=== PATIENT | female | born 2000 | race Caucasian/White ===

== ENCOUNTER 2019-04-24 08:16 | Observation (INO) | payer BC, OTHER ==
[~2019-04-24] VITALS: Ht 152.4 cm; Wt 90.3 kg
[~2019-04-24 08:16] MED LIST: ACET-685 PO; ACET1TAB34 PO; FOLI1TAB21 PO; ONDA4TAB12 PO; RANI150T4 PO
[2019-04-24 08:54] LABS: BILIRUBIN,URINE NEGATIVE (NEGATIVE); UROBILINOGEN,URINE NORMAL (NEGATIVE)
[2019-04-24] MEDS ORDERED: IRON1CAP15 PO (09:00)
[2019-04-24] MEDS ORDERED: ACET500T73 PO (09:01)
[2019-04-24 09:06] LABS: APPEARANCE,URINE HAZY (CLEAR); UA COLOR YELLOW (YELLOW)
[2019-04-24] MEDS ORDERED: MORPHINE SULFATE ONE (11:09)
--- NOTE | 2019-04-24 11:10 | NUR ---
MORPHINE 5 MG IM GIVEN BY BEV GUZMAN TO RT GLUTEAL FOR ABDOMINAL CRAMPING.
[2019-04-24] MEDS ORDERED: MORPHINE SULFATE IM ONE ×2 (12:02→12:07)
--- NOTE | 2019-04-24 12:25 | NUR ---
PAIN ASSESSMENT, PAIN AT A 8 ON SCALE 1-10 MORPHINE 5MG IM ORDERED AT [address] TOREY ARGUELLES
--- NOTE | 2019-04-24 12:26 | NUR ---
PAIN ASSESSMENT AT 1215 PAIN AT A 4 ON SCALE 1-10 ABDOMINAL CRAMPING.
[2019-04-24] MEDS ORDERED: LACTATED RINGERS 1,000 ML ONE (13:36)
--- NOTE | 2019-04-24 13:52 | PRM.PN ---
Progress Note Subjective Date: Apr 24, 2019 Time: 13:38 Physician Notes: 19 y/o @ 37.2 by sono 02/28/2019 @ 29.3 presents with complaints of ctx. Late entry care at [facility] 02/24/19. LMP 09/16/2018. Irritability noted on strip with irregular ctx pattern. > 6 min. FHT Cat 1. SVE unchanged after several hours on triage. Pt uncomfortable states she is ready to have baby to nursing. Offered Morphine rest. Irritability continued with irregular ctx pattern. Pt resting comfortable. Recheck around 130pm no cervical change. CTX 6-8 min apart. IV bolus given. SVE 1-2/40/-4, unchanged since last check at [facility] noted on PN chart 04/20/19 FH 36.5 ABD- soft, diffuse tenderness, gravid Infant very active and pt responds to activity with discomfort. Complains of cramping. Continues to have irritability. 02/28/19 anatomy sono-29.3 biometrics suggest a gestational age of approximately 29 W 3 D, with an Estimated Weight (EFW) of 141 gm (0 lb, 5oz). 03/28/19 sono-34.2 biometrics suggest a gestational age of approximately 34 W 2 D, with an Estimated Weight (EFW) of 2283 gm (5 lb, 1oz). A/ 19 y/o @ 37.2 (second trimester sono dating), LMP 09/16/18 Hx PLTCS s/p failed IOL GBS + CTX Late entry to care P/ Morphine rest Monitor for labor-if progress RCS IV hydration Objective Review IO, Exams,& Results Vital Signs Date Time Temp Pulse Resp B/P (MAP) Pulse Ox O2 Delivery O2 Flow Rate FiO2 04/24/19 09:03 Room Air 03/29/19 15:18 90 Laboratory Tests Test 04/24/19 08:46 Urine Collection Type CCMS Urine Color YELLOW Urine Appearance HAZY Urine Bilirubin NEGATIVE MG/DL Urine Ketones NEGATIVE Urine Specific [place] 1.010 Urine pH 7 Urine Protein NEGATIVE Urine Urobilinogen NORMAL Urine Nitrate NEGATIVE Urine Leukocyte Esterase 100/ul 1+ Urine Blood NEGATIVE Urine RBC NONE SEEN RBC/HPF Urine WBC 10-25 WBC/HPF Urine Squamous Epithelial Cells MANY #/HPF Urine Bacteria MODERATE Urine Other MUCUS 1+ #/HPF Urine Glucose NORMAL Urine Opiates, Qualitative NEGATIVE ng/mL Urine Methadone, Qualitative NEGATIVE ng/mL Urine Amphetamine Qualitative NEGATIVE ng/mL Urine Barbiturates, Qualitative NEGATIVE ng/mL Urine Phencyclidine Screen NEGATIVE ng/mL Urine MDMA (Ecstasy), Qualitative NEGATIVE ng/mL Urine Benzodiazepines Screen NEGATIVE ng/mL Urine Cocaine Qualitative NEGATIVE ng/mL Ur Tetrahydrocannabinol (THC) Scrn NEGATIVE ng/mL Orders - MARY KATE LEMA DO External Monitoring >24w (04/24/19 08:46) Continuous [place] Monitoring (04/24/19 08:46) Sterile Vaginal Exam (04/24/19 08:46) Call Md/Non-Reasurring Fht Pat (04/24/19 08:46) Call Md/Abnorm Vag Bld (04/24/19 08:46) Call Md For Imminent Delivery (04/24/19 08:46) Call Md For Contract (04/24/19 08:46) Urine Culture (04/24/19 08:48) MARY KATE LEMA DO Apr 24, 2019 13:52
== END 2019-04-24 17:25 | disposition home or self-care (01) ==
LOC: ATP 08:16
PROVIDERS: ADMIT Obstetrics & Gynecology; ATTEND Obstetrics & Gynecology
DX: O62.9 Abnormality of forces of labor, unspecified (principal); Z3A.29 29 weeks gestation of pregnancy
CPT/HCPCS: 59025; 80307; 81000; 87086; 96372; G0378 ×9; J2270 ×3; J7120

== ENCOUNTER 2019-04-29 06:20 | Observation (INO) | payer BC, OTHER ==
[~2019-04-29] VITALS: Ht 152.4 cm; Wt 90.3 kg
[~2019-04-29 06:20] MED LIST changes: +ACET500T73 PO; +IRON1CAP15 PO
[2019-04-29 06:55] LABS: BILIRUBIN,URINE NEGATIVE (NEGATIVE); UROBILINOGEN,URINE NORMAL (NEGATIVE)
[2019-04-29 07:02] LABS: APPEARANCE,URINE CLEAR (CLEAR); UA COLOR YELLOW (YELLOW)
[2019-05-15] MEDS ORDERED: IBUP-1131 PO (09:53)
== END 2019-04-29 09:45 | disposition home or self-care (01) ==
LOC: ATP 06:20
PROVIDERS: ADMIT Obstetrics & Gynecology; ATTEND Obstetrics & Gynecology
DX: O62.9 Abnormality of forces of labor, unspecified (principal); O26.893 Other specified pregnancy related conditions, third trimester; R42 Dizziness and giddiness; Z3A.38 38 weeks gestation of pregnancy
CPT/HCPCS: 59025; 80307; 81000; 82948; 87086; G0378 ×3

== ENCOUNTER 2019-05-25 12:58 | Emergency (ER) | payer BC, OTHER ==
[~2019-05-25] VITALS: Ht 149.9 cm; Wt 82.1 kg
[~2019-05-25 12:58] MED LIST changes: +IBUP-1131 PO
[2019-05-25 13:14] VITALS: BP 116/76
--- NOTE | 2019-05-25 13:19 | ER.PDOC ---
General Chief Complaint: Vaginal Bleed Stated Complaint: FEMALE , VAG BLEEDING Time seen by MD: 13:11 Source: patient Exam Limitations: no limitations History of Present Illness Timing/Duration: this morning Severity/Quality: severe, cramping Location of Pain: abdominal pain Care: none Sexual [place] History: less than 2 months ago Contraceptive: none Associated Symptoms: abdominal pain, other (VAGINAL BLEEDING) Prior symptoms/Treatment: Similar symptoms previous, Recenly Seen, Treated by Doctor Allergies: Coded Allergies: shrimp (Verified Allergy, Mild, Anaphylaxis Shock, 05/12/19) Uncoded Allergies: AVACADO (Allergy, Mild, Anaphylaxis Shock, 05/12/19) Home Meds Active Scripts Methylergonovine Maleate (Methergine) 0.2 Mg Tablet, 0.2 MG PO Q6HR for 1 Day, #4 TABLET 0 Refills Prov:MANINDER SLOAN MD 05/25/19 Ibuprofen (IBUPROFEN) 800 Mg Tablet, 800 MG PO Q6H PRN for PAIN 4 - 6 for 15 Days, #30 TABLET 1 Refill Prov:MANINDER SLOAN MD 05/15/19 Reported Medications Acetaminophen (ACETAMINOPHEN) 500 Mg Tablet, 500 MG PO PRN, TABLET 04/24/19 Iron Fum & Ps Cmp/Fa/Vit C/B3 (INTEGRA F CAPSULE) 1 Each Capsule, 1 CAP PO BID, #30 CAP 2 Refills 04/24/19 Folic Acid (FOLIC ACID) 1 Mg Tablet, 1 MG PO DAILY24 for , TABLET 03/11/19 Past Medical History Medical History: no pertinent history Surgical History: Social History Smoking: cigarettes, less than 1 pack/day Alcohol Use: none Drug Use: none Reviewed Nursing Reviewed: Vital Signs, Abn. Noted Review of Systems All Other Systems: Reviewed and Negative Physical Exam General Appearance: No Apparent Distress, WD/WN EENT: eyes nml inspection, nml ENT inspection, pharynx nml Neck: nml inspection, non-tender Cardiovascular/Respiratory: Regular Rate, Rhythm, No M/R/G, Normal Peripheral Pulses, No JVD, Normal Breath Sounds, No Respiratory Distress Abdomen: Other (HEALING C/S SCAR) Back: nml inspection Extremities: Normal Range of Motion, Non-Tender, Normal Inspection, No Pedal Edema, No Calf Tenderness, Normal Capillary Refill Neurologic/Psychiatric: biometric screener II-XII NML as Tested, No Motor/Sensory Deficits, Alert, Normal Mood/Affect, Oriented x 3 Skin: Normal Color, Warm/Dry Lymphatic: No Adenopathy Results/Orders Results/Orders Orders - FROY PATEL MD Cbc With Auto Diff (05/25/19 13:12) Comprehensive Metabolic Panel (05/25/19 13:12) Amylase (05/25/19 13:12) Lipase (05/25/19 13:12) Helicobacter Pylori (05/25/19 13:12) PT (05/25/19 13:12) Partial Thromboplastin Time. (05/25/19 13:12) Hcg Qualitative Serum (05/25/19 13:12) Us Pelvic Non Ob (05/25/19 13:12) Us Tv-Deputy Sheriff Lieutenant (05/25/19 14:29) Vital Signs Date Time Temp Pulse Resp B/P (MAP) Pulse Ox O2 Delivery O2 Flow Rate FiO2 05/25/19 13:14 98.4 58 18 116/76 (89) 98 Room Air 98.4 05/25/19 13:10 98.4 61 18 98 Room Air 98.4 05/25/19 13:10 98.4 58 18 98.4 05/15/19 09:44 76 Laboratory Tests Test 05/25/19 13:24 White Blood Count 5.7 10^3/uL (4.5-11.0) Red Blood Count 3.96 10^6/uL (4.00-5.20) L Hemoglobin 11.1 g/dL (12.0-15.0) #L Hematocrit 34.8 % (36.0-46.0) L Mean Corpuscular Volume 87.9 fL (78-100) Mean Corpuscular Hemoglobin 28.0 pg (26-34) Mean Corpuscular Hemoglobin Concent 31.9 g/dL (33-37) L Red Cell Distribution Width 13.8 % (11.5-14.5) Platelet Count 593 10^3/uL (150-400) H Mean Platelet Volume 7.8 fL (7.8-11.0) Neutrophils (%) (Auto) 49.8 % (41.0-85.0) Lymphocytes (%) (Auto) 37.9 % (24.0-44.0) Monocytes (%) (Auto) 7.9 % (5.0-12.0) Neutrophils # (Auto) 2.9 10^3/uL (1.8-7.7) Lymphocytes # (Auto) 2.2 10^3/uL (1.0-4.8) Monocytes # (Auto) 0.5 10^3/uL (0.3-0.8) Absolute Immature Granulocyte (auto 0.01 10^3 u/L (0-2) Immature Granulocytes % 0.20 % (0.00-0.50) Eosinophils % 3.3 % (0.0-5.0) Basophils % 0.9 % (0.0-0.2) H Basophils # 0.1 10^3/uL (0.0-0.1) Eosinophil Count 0.2 10^3/uL (0.0-0.2) Prothrombin Time 10.4 SEC (9.8-11.9) Prothrombin Time INR (Non-Therap) 1.0 PTT 26.3 SEC (24.67-30.72) Sodium Level 140 mmol/L (132-145) Potassium Level 4.0 mmol/L (3.6-5.2) Chloride Level 107.0 mmol/L (96-109) Carbon Dioxide Level 22.7 mmol/L (20.0-32) Anion Gap 14.3 Blood Urea Nitrogen 13 mg/dL (7-18) Creatinine 0.66 mg/dL (0.59-1.40) Estimated GFR () 136.8 (>/=60) BUN/Creatinine Ratio 19.0 Glucose Level 79 mg/dL (70-110) Calcium Level 9.2 mg/dL (8.4-10.5) Total Bilirubin 0.3 mg/dL (0.2-1.0) Aspartate Amino Transferase (AST) 13 U/L (0-35) Alanine Aminotransferase (ALT) 14 U/L (12-78) Alkaline Phosphatase 83 U/L (50-136) Total Protein 7.1 g/dL (6.4-8.2) Albumin 3.4 g/dL (3.4-5.0) Globulin 3.7 Amylase Level 24 U/L (25-115) L Lipase 122 U/L (114-286) Serum HCG, Qualitative NEGATIVE (NEGATIVE) Helicobacter pylori Screen NEGATIVE (NEGATIVE) Consult/PCP Time Consult/PCP Called: 15:55 Consult/PCP: DR SLOAN Departure Time of Disposition: 18:00 Disposition: 01 HOME, SELF-CARE Impression: Primary Impression: Post-op bleeding Condition: Stable Referrals: GOSIA GOYAL MANAGER [employer]PERATIONS (PCP) PRIMARY CARE PROVIDER Scripts Methylergonovine Maleate (Methergine) 0.2 Mg Tablet 0.2 MG PO Q6HR for 1 Day, #4 TABLET 0 Refills Prov: MANINDER SLOAN MD 05/25/19 Duration or Time Spent with Pa: 30 M FROY PATEL MD May 25, 2019 13:19
[2019-05-25 13:32] LABS: BASOPHIL # 0.1 10^3/uL (0.0-0.1); BASOPHIL % 0.9 % (0.0-0.2); EOSINOPHIL # 0.2 10^3/uL (0.0-0.2); EOSINOPHIL % 3.3 % (0.0-5.0); HEMOGLOBIN 11.1 g/dL (12.0-15.0); LYMPHOCYTES # 2.2 10^3/uL (1.0-4.8); LYMPHOCYTES % 37.9 % (24.0-44.0); MEAN CELL HGB CONCENTRATION 31.9 g/dL (33-37); MEAN CORP VOLUME 87.9 fL (78-100); MEAN PLATELET VOLUME 7.8 fL (7.8-11.0); MONOCYTES # 0.5 10^3/uL (0.3-0.8); MONOCYTES % 7.9 % (5.0-12.0); NEUTROPHIL # 2.9 10^3/uL (1.8-7.7); NEUTROPHILS % 49.8 % (41.0-85.0); RED CELL DISTRIBUTION WIDTH 13.8 % (11.5-14.5); WHITE BLOOD CELL 5.7 10^3/uL (4.5-11.0)
[2019-05-25 13:45] LABS: CALCIUM 9.2 mg/dL (8.4-10.5); CARBON DIOXIDE 22.7 mmol/L (20.0-32)
[2019-05-25 13:48] LABS: HCG QUALITATIVE -RESTRICTLAB NEGATIVE (NEGATIVE)
[2019-05-25 14:00] VITALS: BP 140/84
--- NOTE | 2019-05-25 14:43 | DIREP ---
PROCEDURE:US PELVIS COMPLETE COMPARISON:[facility], US, US OB LIMITED, 03/28/2019, 03:53 PM. INDICATIONS:vag bleeding TECHNIQUE:Pelvic ultrasound using transabdominal technique. Endovaginal images were also obtained for better assessment of the uterus and adnexa. FINDINGS: UTERUS:Size is 11.4 x 9.5 x 8.1 cm. The myometrium is homogeneous. ENDOMETRIUM:Hypoechoic material and fluid the is noted in the endometrial cavity, measuring up to 3 cm in maximum dimension. RIGHT OVARY:Normal appearance. 2.3 x 2.3 x 2.1 cm. Arterial flow demonstrated with Doppler waveform. LEFT OVARY:Normal appearance. 2.1 x 2.5 x 1.3 cm. Arterial flow demonstrated with Doppler waveform. CUL-DE-SAC:Normal. OTHER:Negative. CONCLUSION: Retained products of conception versus hemorrhage within the endometrial cavity. Dictated by: DARWINA Physician on 05/25/2019 at 02:32 PM kriss
--- NOTE | 2019-05-25 15:17 | NUR ---
PHONE CALL DR. PATEL ON PHONE WITH DR. SLOAN FOR CONSULTATION OF PT.
[2019-05-25 16:00] VITALS: BP 120/76
[2019-05-25] MEDS ORDERED: [UNRECOGNIZED DRUG - CODE] PO (16:57)
[2019-05-25 17:00] VITALS: BP 134/78
--- NOTE | 2019-05-25 17:00 | PCM.HP ---
History of Present Illness Reason for Visit: Uterine bleeding History of Present Illness This patient is a 19yo s/p repeat delivery 05/13/19 who presents after having multiple episodes of heavy bleeding this am, saturating one pad and passing golf ball sized clots. She denies having chest pain, dizziness, rudi rtness of breath. Her cramping is mild to moderate. She has no other complaints at this time. Past Medical History Grav: 2 Para: 2 Ab: 0 Past Surgical History: Travel Hx EBOLA RISK:Travel to/contact w: No Review of Systems Constitutional: No: Fever, Chills Respiratory: No: Cough, Shortness of breath, SOB with excertion, Wheezing Cardiovascular: No: Chest Pain Gastrointestinal: Abdominal Pain; No: Nausea, Vomiting Genitourinary: No Dysuria Allergies: Coded Allergies: shrimp (Verified Allergy, Mild, Anaphylaxis Shock, 05/12/19) Uncoded Allergies: AVACADO (Allergy, Mild, Anaphylaxis Shock, 05/12/19) Scheduled Acetaminophen (Acetaminophen), 500 MG PO PRN, (Reported) Folic Acid (Folic Acid), 1 MG PO DAILY24, (Reported) Iron Fum & Ps Cmp/Fa/Vit C/B3 (Integra F Capsule), 1 CAP PO BID, (Reported) Methylergonovine Maleate (Methergine), 0.2 MG PO Q6HR Scheduled PRN Ibuprofen (Ibuprofen), 800 MG PO Q6H PRN for PAIN 4 - 6 VTE VTE Risk Total Score: 3 VTE Risk Score VTE Risk: Score 0-1 = Low Risk (Aggressive mobilization; early ambulation; no VTE prophylaxis required) Score 2: Moderate Risk (Intermittent/Pneumatic Compression Device OR Lovenox/Heparin/Coumadin) Score 3-4: High Risk (Intermittent/Pneumatic Compression Device AND Lovenox/Heparin/Coumadin) Score > or =5: Highest Risk (Intermittent/Pneumatic Compression Device AND Lovenox/Heparin/Coumadin) Antico:Hep/LMWH/Coum/Xarelto: No Mechanical device ordered: No VTE VTE Present on Admission: No Currently receiving anticoagul: No VTE Risk Total Score: 3 Exam Vital Signs Vital Signs Date Time Temp Pulse Resp B/P (MAP) Pulse Ox O2 Delivery O2 Flow Rate FiO2 05/25/19 13:14 98.4 58 18 116/76 (89) 98 Room Air 98.4 General Appearance: Alert, Oriented X3, Cooperative, No acute distress HEENT: Atraumatic, PERRLA Respiratory: Clear to auscultation, Normal air movement Cardiovascular: Normal S1, Normal S2 Abdominal: Normal bowel sounds, Other (steri-strips removed, incision is clean/dry/intact with superficial blanching erythema along <40% of length of incision at areas in contact with clothing. Tender, firm, non-fluctuant mass p resent along the right aspect of the incision deep to the incision. No discharge along the incision. No active uterine hemorrhage.) Extremities: No clubbing, No cyanosis, No edema Psych/Mental Status: Mental status NL, Mood NL Assessment/Plan Assessment/Plan Assessment/Plan 19yo with delayed hemorrhage and subcutaneous hematoma. 1) her delayed hemorrhage is likely due to placental subinvolution. I counseled Ingrid on the risks and benefits of medical management with Methergine, surgical management with dilation and curettage, or expectant management. I do not think D&C is indicated given that she does not have acute blood loss anemia and that her bleeding as stabilized at this time. She would like to proceed with oral Methergine at this time. 2) her subcutaneous hematoma does not appear to be infected. I explained that this will resolve over time, but may require surgical evacuation if it appears to be infected. I advised her to return to ER or call the clinic if she began having erythema, fevers, foul smelling drainage. She verbalized understanding. Patient will follow up in the [facility]. Problems: (1) Delayed hemorrhage ICD Code: O72.2 - Delayed and secondary hemorrhage SNOMED: 22383909 (2) Postoperative hematoma of subcutaneous tissue following non-dermatologic procedure ICD Code: L76.32 - Postprocedural hematoma of skin and subcutaneous tissue following other procedure SNOMED: 3583423, [id number], [id number] (3) Other specified abnormal uterine and vaginal bleeding ICD Code: N93.8 - Other specified abnormal uterine and vaginal bleeding SNOMED: 604268105 Patient History: No known health problems V19 CHILD NATHALIA,MANINDER Robles MD May 25, 2019 17:00
[2019-05-25 17:40] VITALS: BP 134/78
== END 2019-05-25 17:34 | disposition home or self-care (01) ==
LOC: ER 12:58
DX: N99.820 Postprocedural hemorrhage of a genitourinary system organ or structure following a genitourinary system procedure (principal); F17.210 Nicotine dependence, cigarettes, uncomplicated; Z79.1 Long term (current) use of non-steroidal anti-inflammatories (NSAID); Z79.899 Other long term (current) drug therapy; Z91.018 Allergy to other foods
CPT/HCPCS: 36415; 76830; 76856; 80053; 82150; 83690; 84703; 85025; 85610; 85730; 86677; 99285

== ENCOUNTER 2019-06-04 22:14 | Emergency (ER) | payer BC, OTHER ==
[~2019-06-04] VITALS: Ht 149.9 cm; Wt 82.1 kg
[~2019-06-04 22:14] MED LIST changes: +[UNRECOGNIZED DRUG - CODE] PO
[2019-06-04 22:26] VITALS: BP 118/69
--- NOTE | 2019-06-04 22:36 | ER.PDOC ---
General Chief Complaint: Requesting Medical Care Stated Complaint: WOUND CHECK Time seen by MD: 22:33 Source: patient Exam Limitations: no limitations History of Present Illness Initial Procedure Done In ER: For wound check, C/S 3 weeks ago. Feels a bump. Allergies: Coded Allergies: shrimp (Verified Allergy, Mild, Anaphylaxis Shock, 05/12/19) Uncoded Allergies: AVACADO (Allergy, Mild, Anaphylaxis Shock, 05/12/19) Home Meds Active Scripts Methylergonovine Maleate (Methergine) 0.2 Mg Tablet, 0.2 MG PO Q6HR for 1 Day, #4 TABLET 0 Refills Prov:MANINDER SLOAN MD 05/25/19 Ibuprofen (IBUPROFEN) 800 Mg Tablet, 800 MG PO Q6H PRN for PAIN 4 - 6 for 15 Days, #30 TABLET 1 Refill Prov:MANINDER SLOAN MD 05/15/19 Reported Medications Acetaminophen (ACETAMINOPHEN) 500 Mg Tablet, 500 MG PO PRN, TABLET 04/24/19 Iron Fum & Ps Cmp/Fa/Vit C/B3 (INTEGRA F CAPSULE) 1 Each Capsule, 1 CAP PO BID, #30 CAP 2 Refills 04/24/19 Folic Acid (FOLIC ACID) 1 Mg Tablet, 1 MG PO DAILY24 for , TABLET 03/11/19 Past Medical History Medical History: no pertinent history Surgical History: Social History Smoking: other Alcohol Use: occassionally Drug Use: none Constitutional: no symptoms reported EENTM: no symptoms reported Respiratory: no symptoms reported Cardiovascular: no symptoms reported Gastrointestinal: no symptoms reported Skin: see HPI All Other Systems: Reviewed and Negative Physical Exam General Appearance: alert, no distress Neuro/Vascular/Tendon: no vascular compromise, sensation nml, no tendon injury, nml ROM Skin: no infection (healed wound) Head/ENT: nml inspection, pharynx nml Neck/Back: nml inspection, non-tender, painless ROM Respiratory: chest non-tender, no resp. distress, breath sounds nml CVS: reg. rate & rhythm, heart sounds nml Abdomen: non-tender, no organomegaly Results/Orders Results/Orders Vital Signs Date Time Temp Pulse Resp B/P (MAP) Pulse Ox O2 Delivery O2 Flow Rate FiO2 06/04/19 22:26 98.1 77 19 99 Room Air 98.1 06/04/19 22:26 98.4 74 19 118/69 (85) 99 Room Air 98.4 Departure Time of Disposition: 22:35 Disposition: 01 HOME, SELF-CARE Impression: Primary Impression: Encounter for postoperative wound check Condition: Stable Referrals: MANINDER SLOAN MD (PCP) PRIMARY CARE PROVIDER Additional Instructions: F/U with your OB Doctor next week Duration or Time Spent with Pa: 20 min STARR COLLINS MD Jun 04, 2019 22:36
[2019-06-04] MEDS ORDERED: TORADOL ONE (22:43)
[2019-06-04] MEDS ORDERED: TORADOL IM STA (22:44)
[2019-06-04 22:55] LABS: BASOPHIL % 0.4 % (0.0-0.2); EOSINOPHIL # 0.3 10^3/uL (0.0-0.2); EOSINOPHIL % 3.3 % (0.0-5.0); HEMOGLOBIN 11.9 g/dL (12.0-15.0); LYMPHOCYTES # 1.7 10^3/uL (1.0-4.8); LYMPHOCYTES % 20.6 % (24.0-44.0); MEAN CELL HGB 28.3 pg (26-34); MEAN CELL HGB CONCENTRATION 31.6 g/dL (33-37); MEAN CORP VOLUME 89.5 fL (78-100); MEAN PLATELET VOLUME 8.5 fL (7.8-11.0); MONOCYTES # 0.6 10^3/uL (0.3-0.8); MONOCYTES % 6.8 % (5.0-12.0); NEUTROPHIL # 5.7 10^3/uL (1.8-7.7); NEUTROPHILS % 68.8 % (41.0-85.0); RED CELL DISTRIBUTION WIDTH 14.8 % (11.5-14.5); WHITE BLOOD CELL 8.3 10^3/uL (4.5-11.0)
[2019-06-04 23:14] LABS: CALCIUM 8.8 mg/dL (8.4-10.5); CARBON DIOXIDE 28.1 mmol/L (20.0-32)
[2019-06-04 23:45] VITALS: BP 132/61
== END 2019-06-04 23:40 | disposition home or self-care (01) ==
LOC: ER 22:14
DX: K82.9 Disease of gallbladder, unspecified (principal); Z91.013 Allergy to seafood; Z79.1 Long term (current) use of non-steroidal anti-inflammatories (NSAID); Z79.899 Other long term (current) drug therapy; Z48.01 Encounter for change or removal of surgical wound dressing
CPT/HCPCS: 36415; 80053; 85025; 96372; 99284; J1885

== ENCOUNTER 2019-06-29 06:24 | Day surgery (SDC) | payer BC, OTHER ==
[2019-06-27 10:54] VITALS: BP 116/65
[2019-06-27 11:16] LABS: BASOPHIL % 0.3 % (0.0-0.2); EOSINOPHIL # 0.3 10^3/uL (0.0-0.2); EOSINOPHIL % 4.2 % (0.0-5.0); HEMOGLOBIN 11.7 g/dL (12.0-15.0); LYMPHOCYTES # 2.6 10^3/uL (1.0-4.8); LYMPHOCYTES % 37.4 % (24.0-44.0); MEAN CELL HGB 28.3 pg (26-34); MEAN CELL HGB CONCENTRATION 31.8 g/dL (33-37); MEAN CORP VOLUME 88.9 fL (78-100); MEAN PLATELET VOLUME 8.7 fL (7.8-11.0); MONOCYTES # 0.6 10^3/uL (0.3-0.8); NEUTROPHIL # 3.4 10^3/uL (1.8-7.7); NEUTROPHILS % 50.1 % (41.0-85.0); RED CELL DISTRIBUTION WIDTH 15.3 % (11.5-14.5); WHITE BLOOD CELL 6.9 10^3/uL (4.5-11.0)
[2019-06-27 11:40] LABS: CALCIUM 8.3 mg/dL (8.4-10.5); CARBON DIOXIDE 24.1 mmol/L (20.0-32)
[~2019-06-29] VITALS: Ht 152.4 cm; Wt 85.3 kg
[~2019-06-29 06:24] MED LIST changes: +LACTATED RINGERS 1,000 ML ONE; +OMEP40CA6 PO; +PREN1TAB59 PO
[2019-06-29 06:25] VITALS: BP 143/63
[2019-06-29] MEDS: LACTATED RINGERS 1,000 ML IV SCH (06:48)
[2019-06-29] MEDS ORDERED: LIDOCAINE 2% VIAL ONE (07:04)
[2019-06-29] MEDS ORDERED: WATER ONE (07:04)
[2019-06-29] MEDS ORDERED: SUBLIMAZE ONE (07:05)
[2019-06-29] MEDS ORDERED: DIPRIVAN IV ONE (07:05)
[2019-06-29 07:52] VITALS: BP 103/58
[2019-06-29 08:07] VITALS: BP 107/41
[2019-06-29 08:19] VITALS: BP 114/59
[2019-06-29 08:32] VITALS: BP 128/68
--- NOTE | 2019-06-29 08:42 | OPH ---
DATE OF SURGERY: PREOPERATIVE DIAGNOSES: History of dyspepsia. POSTOPERATIVE DIAGNOSIS: Gastritis. SURGEON: Benjamin Aguirre DO. DAYCARE MANAGER: OR staff. ANESTHESIA: Total intravenous anesthesia by Shamir Corrales CRNA. PROCEDURES PERFORMED: Esophagogastroduodenoscopy with biopsy. SPECIMENS: Gastric mucosa to path. ESTIMATED BLOOD LOSS: 3 mL. At the completion of the case, the counts were correct per OR staff. DESCRIPTION OF PROCEDURE: The patient is a 19-year-old female known from previous evaluation. Prior to procedure, informed consent was obtained. At time of procedure, she was taken to the operative suite and placed in supine position. After timeout was completed, she was placed in left lateral recumbent position. With excellent sedation, esophagogastroduodenoscope was advanced transorally with pneumoinsufflation distally in second portion of duodenum. Once the duodenum was adequately visualized, camera was slowly withdrawn to facilitate visualization of duodenal bulb and the pylorus. Pylorus shows some gastritis and biopsies were obtained. With good hemostasis noted, the retroflexed maneuver was performed. The cardia and fundus appeared fairly normal with an appropriate valve identified at the cardia. Camera was reduced. Stomach was decompressed. Scope was slowly withdrawn. Distal, mid and proximal esophagus showed no significant changes. Vocal cords were visualized within normal limits. Camera was removed. Procedure was discontinued. The patient tolerated this procedure well. There were no acute complications noted. Benjamin Aguirre DO DR: CELSO/geri JOB# [id number] CC: MANINDER SLOAN MD
== END 2019-06-29 08:36 | disposition home or self-care (01) ==
LOC: SDC 06:24
PROVIDERS: ATTEND Surgery
DX: K29.50 Unspecified chronic gastritis without bleeding (principal); K30 Functional dyspepsia; K82.8 Other specified diseases of gallbladder; F17.210 Nicotine dependence, cigarettes, uncomplicated; E66.9 Obesity, unspecified; Z68.36 Body mass index [BMI] 36.0-36.9, adult; Z98.890 Other specified postprocedural states; Z88.8 Allergy status to other drugs, medicaments and biological substances; Z72.89 Other problems related to lifestyle
CPT/HCPCS: 36415; 43239; 80053; 84703; 85025; 85610; 85730; 86677; J2001; J3010; J3490; J7120; 88305

== ENCOUNTER 2019-07-13 07:44 | Day surgery (SDC) | payer BC, OTHER ==
[~2019-07-13] VITALS: Ht 152.4 cm; Wt 85.3 kg
[2019-07-13] VITALS (10 sets, daily range): BP systolic 103–129; BP diastolic 51–85
[~2019-07-13 07:44] MED LIST changes: +DECADRON ONE; +DILAUDID ONE; +DIPRIVAN IV ONE; +ISOTON GENTAMICIN 80 MG/50 ML 50 ML IV ONE; +LIDOCAINE 2% VIAL ONE; +LOVENOX SQ ONE; +NEOSTIGMINE ONE; +SENSORCAINE-MPF 0.25% VIAL ONE; +SODIUM CHLORIDE IR ONE; +SODIUM CHLORIDE IRR BAG 1,000 ML ONE; +SUBLIMAZE ONE; +TORADOL ONE; +VERSED ONE; +ZEMURON IV ONE; +ZOFRAN ONE
[2019-07-13] MEDS ORDERED: CELEBREX PO ONE (08:00)
[2019-07-13] MEDS ORDERED: LACTATED RINGERS 1,000 ML IV SCH (08:00)
[2019-07-13] MEDS ORDERED: LOVENOX SQ ONE (08:00)
[2019-07-13] MEDS ORDERED: TYLENOL PO ONE (08:00)
[2019-07-13] MEDS ORDERED: TYLENOL ONE (08:12)
[2019-07-13] MEDS ORDERED: CELEBREX ONE (08:13)
[2019-07-13] MEDS ORDERED: DILAUDID ONE (10:58)
[2019-07-13] MEDS ORDERED: PHENERGAN IV PRN (11:00)
[2019-07-13] MEDS ORDERED: ZOFRAN IV PRN ×2 (11:00)
[2019-07-13] MEDS ORDERED: NORCO 5MG PO PRN (11:00)
[2019-07-13] MEDS ORDERED: MORPHINE SULFATE IV PRN ×2 (11:00)
[2019-07-13] MEDS ORDERED: SUBLIMAZE IV PRN (11:00)
[2019-07-13] MEDS: DILAUDID IV PRN ×2 (11:06→11:11)
[2019-07-13] MEDS ORDERED: GENASYME ONE (11:59)
[2019-07-13] MEDS ORDERED: GENASYME PO STA (12:13)
--- NOTE | 2019-07-13 13:46 | OPH ---
DATE OF SURGERY: PREOPERATIVE DIAGNOSIS: Biliary sludge associated symptoms. POSTOPERATIVE DIAGNOSIS: Chronic cholecystitis. SURGEON: Benjamin Aguirre DO PLASTIC BATTERY ASSEMBLER: OR staff. ANESTHESIA: General by Sloan Horowitz CRNA plus block provided intraoperatively. PROCEDURES PERFORMED: Laparoscopic-assisted cholecystectomy. SPECIMENS: Gallbladder to path. ESTIMATED BLOOD LOSS: 7 mL. COUNTS: At the completion of the case, the counts were correct per OR staff. DESCRIPTION OF PROCEDURE: The patient is a 19-year-old female known from previous evaluation. Prior to procedure, informed consent was obtained. At time of procedure, she was taken to the operative suite and placed in supine position. After time-out was completed, general anesthesia was obtained. A block was provided intraoperatively by Department of Anesthesia. Next, the abdomen was prepped and draped in normal fashion. Periumbilical incision was created and 5 mm trocar was introduced into the abdomen with Endo camera visualization. Once in the abdomen, pneumoperitoneum was induced to level of 14 mmHg. Next, with camera visualization, 5 mm trocar was placed in the lateral right upper quadrant, one was placed in the epigastrium, one was placed in the midline. The gallbladder was retracted and exposed. Attention was directed towards the infundibulum. Careful dissection was made to isolate the cystic duct. Once it was clearly isolated, it was clipped twice proximally and once distally and divided sharply. Further dissection was made to isolate the cystic artery. Once clearly isolated, it was clipped twice proximally and once distally and divided sharply. The gallbladder was then removed from liver bed using electrocautery. Once completely removed, it was placed in EndoCatch bag and removed through epigastric trocar and passed to the backtable. Trocar was reinserted. The gallbladder fossa was irrigated with sterile saline, inspected for bleeding. Any bleeding identified was controlled with electrocautery. With meticulous hemostasis noted, irrigation and suctioned, closure was pursued. Superior trocar was removed and the fascia on the epigastric incision was closed using 0 Vicryl suture and the Juanito-Jasen device. After this was repaired, camera was placed in the lateral trocar site. The two midline trocars were removed with camera visualization. There was noted to be no bleeding. The lateral trocar was removed from pneumoperitoneum. After this was completed, trocars removed with camera visualization through trocar tract. There was noted to be no bleeding. The four incisions were irrigated and closed with 4-0 Monocryl in subcutaneous. The patient was cleaned. Steri-Strips and bandage applied. Drapes removed. The patient tolerated this procedure well. There were no acute complications noted. Benjamin Aguirre DO DR: CELSO/geri JOB# [id number] CC: MANINDER SLOAN MD
== END 2019-07-13 12:32 | disposition home or self-care (01) ==
LOC: SURG 07:44
PROVIDERS: ATTEND Surgery
DX: K80.10 Calculus of gallbladder with chronic cholecystitis without obstruction (principal); K29.50 Unspecified chronic gastritis without bleeding; K21.9 Gastro-esophageal reflux disease without esophagitis; E66.9 Obesity, unspecified; Z68.38 Body mass index [BMI] 38.0-38.9, adult; Z98.890 Other specified postprocedural states; Z88.8 Allergy status to other drugs, medicaments and biological substances; Z79.84 Long term (current) use of oral hypoglycemic drugs; Z79.899 Other long term (current) drug therapy
CPT/HCPCS: 47562; 81025; 88304; A4217 ×2; J1100; J1170 ×2; J1650; J1885; J2001; J2250; J2405; J2710; J3010; J3490 ×4; J7120 ×2; J8499

== ENCOUNTER → 2019-09-09 | Outpatient (CLI) | payer BC, OTHER ==
[~2019-09-09] MED LIST changes: -DECADRON ONE; -DILAUDID ONE; -DIPRIVAN IV ONE; -ISOTON GENTAMICIN 80 MG/50 ML 50 ML IV ONE; -LACTATED RINGERS 1,000 ML ONE; -LIDOCAINE 2% VIAL ONE; -LOVENOX SQ ONE; -NEOSTIGMINE ONE; +OMEP40CA41 PO; -OMEP40CA6 PO; -SENSORCAINE-MPF 0.25% VIAL ONE; -SODIUM CHLORIDE IR ONE; -SODIUM CHLORIDE IRR BAG 1,000 ML ONE; -SUBLIMAZE ONE; -TORADOL ONE; -VERSED ONE; -ZEMURON IV ONE; -ZOFRAN ONE
== END | disposition home or self-care (01) ==
LOC: LAB 19:31
PROVIDERS: ATTEND Obstetrics & Gynecology
DX: N39.0 Urinary tract infection, site not specified (principal)
CPT/HCPCS: 87077; 87086; 87186